=== PATIENT | female | born 1940 | race Two or more races ===

== ENCOUNTER 2017-12-29 23:06 | Inpatient (IN) | payer MEDICAID, MEDICARE ==
[~2017-12-29] VITALS: Ht 160 cm; Wt 68.0 kg
[2017-12-29] MEDS ORDERED: ONDANSETRON HCL/PF 4 MG/2 ML VIAL ONE (23:13)
[2017-12-29 23:58] LABS: HEMATOCRIT 37 % (33-45); HEMOGLOBIN 12.3 g/dL (11.5-14.8); LYMPHOCYTES # (AUTO) 0.6 /CMM (0.8-4.8); LYMPHOCYTES % (AUTO) 6.4 % (20.0-44.0); MEAN CORPUSCULAR HGB CONC 34 g/dl (31.0-36.0); MEAN CORPUSCULAR VOLUME 87 fL (82-100); MONOCYTES # (AUTO) 0.1 /CMM (0.1-1.30); MONOCYTES % (AUTO) 1.3 % (2.0-12.0); NEUTROPHILS % (AUTO) 92.3 % (43.0-81.0); PLATELET COUNT (AUTO) 198 /CMM (150-450); RDW COEFFICIENT OF VARIATION 13.9 (11.5-15.0); WHITE BLOOD COUNT (AUTO) 9.7 K/uL (4.3-11.0)
[2017-12-30] MEDS ORDERED: ONDANSETRON HCL/PF - ER 4 MG/2 ML VIAL IV ONE
--- NOTE | 2017-12-30 00:02 | NUR ---
PT LEFT FOR CT.
[2017-12-30 00:07] LABS: CALCIUM, SERUM 9.2 mg/dL (8.5-10.1); CARBON DIOXIDE 26 mmol/L (21-32); CHLORIDE 102 mmol/L (98-107); CREATININE 0.8 mg/dL (0.6-1.3); GLUCOSE 182 mg/dL (74-106); SODIUM SERUM 138 mmol/L (136-145); UREA NITROGEN, BLOOD 26 mg/dL (7-18)
[2017-12-30 00:14] LABS: INR 0.95 (0.87-1.13)
--- NOTE | 2017-12-30 00:20 | NUR ---
PT RETURNED FROM CT.
--- NOTE | 2017-12-30 00:47 | NUR ---
CALLED NURSING SUP. FOR TELE BED
[2017-12-30] MEDS ORDERED: MAGNESIUM HYDROXIDE 30 ML UDC PO PRN (01:00)
[2017-12-30] MEDS ORDERED: MAG HYDROX/AL HYDROX/SIMETH 30 ML UDC PO PRN (01:00)
[2017-12-30] MEDS ORDERED: ONDANSETRON HCL/PF 4 MG/2 ML VIAL IVP PRN (01:00)
[2017-12-30] MEDS ORDERED: IV NS 0.9% 500 ML BAG IV ONE (01:00)
[2017-12-30] MEDS ORDERED: HYDROCODONE/APAP 5/325MG 1 EACH TABLET PO PRN (01:00)
[2017-12-30] MEDS ORDERED: CLONIDINE HCL 0.1 MG TABLET PO PRN (01:00)
[2017-12-30] MEDS ORDERED: ZOLPIDEM TARTRATE 5 MG TABLET PO PRN (01:00)
[2017-12-30] MEDS ORDERED: ACETAMINOPHEN 325 MG TABLET PO PRN (01:00)
[2017-12-30] MEDS ORDERED: Z GUARD REMEDY 2 OZ OINT TP PRN (01:00)
--- NOTE | 2017-12-30 01:50 | NUR ---
REPORT GIVEN TO JAYNE CHADWICK.
[2017-12-30 02:00] VITALS: BP 150/90
--- NOTE | 2017-12-30 02:14 | NUR ---
PT TRANSPORTED TO TELE VIA [facility] PER PROTOCOL.
[2017-12-30] MEDS: METOPROLOL TARTRATE 25 MG TABLET PO SCH ×3 (02:59→16:27)
--- NOTE | 2017-12-30 03:00 | NUR ---
TELE SENIOR COPYWRITER INITIAL NOTES ADMIT PT FROM ER VIA [facility] ACCOMPANIED BY ER NURSE AND HER FAMILY. DX OF HYPERTENSIVE URGENCY. PT IS ALERT AND ORIENTED, CITIZ[place] OF [place] SPEAKING AMBULATE WITH SOME ASSISTANCE FOR PT SAFETY. DENIES ANY N/V AT THIS TIME. SHE ONLY STATED HER MOUTH SO DRY . CHECKED HER ORDERED AND SHE'S ON CARDIAC DIET. ICE CHIP GIVEN ABD JELO. NO N/V NOTED PT TOLERATED WELL. NO ASPIRATION TOO. TELE SR PER MONITOR. KEPT HER WARM AND COMFORTABLE AT ALL TIMES. PLACE CALL LIGHT AT REACH. WILL CONTINUE TO MONITOR.
[2017-12-30 03:07] VITALS: BP 150/90
[2017-12-30 04:00] VITALS: BP 135/80
--- NOTE | 2017-12-30 07:39 | NUR ---
TELE STEEL POST INSTALLER CLOSING NOTES PT BAKC TO SLEEP AFTER USING THE RESTROOM. DENIES ANY DIZZINESS AND N/V. SHE STATED GOOD. KEPT HER WARM AND COMFORTABLE AT ALL TIMES,. TELE SR PER MONITOR. ENDORSE TO AM NURSE FOR CONTINUITY OF CARE. PLACE CALL LIGHT AT REACH.
[2017-12-30 08:00] VITALS: BP 118/60
--- NOTE | 2017-12-30 08:49 | NUR ---
CHIEF DISPATCHER SERVICE NOTES PATIENT IN BED, A/O X4. RWANDAN SPEAKING, UNDERSTAND AND SPEAKS SOME HUNGARIAN. BREAKFAST SERVED, GOOD APPETITE. DENIES N/V, NO C/O PAIN. SINUS RHYTHM HR 70 ON THE MONITOR. IVC IN LEFT HAND G20 PATENT AND INTACT, FLUSHES WELL. SAFETY MEASURES IN PLACE. WILL CONT TO MONITOR.
[2017-12-30 16:00] VITALS: BP 125/57
--- NOTE | 2017-12-30 18:21 | NUR ---
BANK ACCOUNTANT CLOSING NOTES VS STABLE, SINUS RHYTHM, SINUS ERICA HR 56 IN THE MONITOR. TOLERATING ROOM AIR WITH NO SOB. DENIES DIZZINESS. IVC IN LEFT HAND G20 PATENT AND INTACT, FLUSHES WELL. SAFETY MEASURES IN PLACE. CALL LIGHT WITHIN REACH. WILL CONT TO MONITOR. WILL ENDORSE TO ONCOMING RN.
--- NOTE | 2017-12-30 18:27 | NUR ---
MS RN CLOSING NOTES VS STABLE, TOLERATING ROOM AIR WITH NO SOB. EPISODE OF DIARRHEA X1 TODAY, ABDOMINAL CRAMPS MANAGED BY DICYCLOMINE PO PRN, EFFECTIVE. IVC IN RFA G22 PATENT AND INTACT, FLUSHES. AFEBRILE DURING THE SHIFT. MAINTAINED CONTACT ISOLATION STOOL CDIFF. SAFETY MEASURES IN PLACE. CALL LIGHT WITHIN REACH. WILL CONT TO MONITOR. Addendum: 12/31/17 at 0810 by ANJALI GOINS RN LATE ENTRY 12/31/17 ERROR NOTES ABOVE, WRONG ENTRY, PLEASE DISREGARD.
--- NOTE | 2017-12-30 19:30 | NUR ---
RN OPENING NOTES PT AWAKE AND RESTING IN BED. PT PRIMARILY [place] SPEAKER. NO COMPLAINTS OF PAIN, DISTRESS OR SOB AT THIS TIME. PT IS TELE MONITORED SINUS ERICA 55. PT HAS A LEFT HAND #20 IV, INTACT AND PATENT. SAFETY PRECAUTIONS IN PLACE. BED IN LOWEST LOCKED POSITION, X2 SIDE RAILS UP, CALL LIGHT WITHIN REACH. WILL CONTINUE TO MONITOR.
[2017-12-30 20:00] VITALS: BP 141/59
[2017-12-31] VITALS: BP 156/81
[2017-12-31 04:00] VITALS: BP 135/82
[2017-12-31 06:53] LABS: BASOPHILS % (AUTO) 0.4 % (0.0-2.0); EOSINOPHILS % (AUTO) 0.9 % (0.0-6.0); HEMATOCRIT 37 % (33-45); HEMOGLOBIN 12.6 g/dL (11.5-14.8); LYMPHOCYTES # (AUTO) 2.4 /CMM (0.8-4.8); LYMPHOCYTES % (AUTO) 29.4 % (20.0-44.0); MEAN CORPUSCULAR HGB CONC 34 g/dl (31.0-36.0); MEAN CORPUSCULAR VOLUME 87 fL (82-100); MONOCYTES # (AUTO) 0.8 /CMM (0.1-1.30); NEUTROPHILS # (AUTO) 4.8 /CMM (1.8-8.9); NEUTROPHILS % (AUTO) 59.3 % (43.0-81.0); PLATELET COUNT (AUTO) 202 /CMM (150-450); RDW COEFFICIENT OF VARIATION 14.1 (11.5-15.0); RED BLOOD CELL COUNT(AUTO) 4.26 MIL/uL (4.0-5.2); WHITE BLOOD COUNT (AUTO) 8.2 K/uL (4.3-11.0)
--- NOTE | 2017-12-31 06:58 | NUR ---
RN CLOSING NOTES PT AWAKE AND RESTING IN BED. PT PRIMARILY ZAMBIAN SPEAKER. NO COMPLAINTS OF PAIN, DISTRESS OR SOB OVERNIGHT. PT IS TELE MONITORED SINUS 57. PT HAS A LEFT HAND #20 IV, INTACT AND PATENT. SAFETY PRECAUTIONS IN PLACE. BED IN LOWEST LOCKED POSITION, X2 SIDE RAILS UP, CALL LIGHT WITHIN REACH. WILL ENDORSE TO DAY SHIFT NURSE FOR CONTINUITY OF CARE.
[2017-12-31 07:10] LABS: CALCIUM, SERUM 8.7 mg/dL (8.5-10.1); CARBON DIOXIDE 28 mmol/L (21-32); CHLORIDE 106 mmol/L (98-107); CREATININE 0.9 mg/dL (0.6-1.3); GLUCOSE 95 mg/dL (74-106); MAGNESIUM 2.1 mg/dL (1.8-2.4); PHOSPHORUS 3.8 mg/dL (2.5-4.9); POTASSIUM 3.9 mmol/L (3.5-5.1); SODIUM SERUM 142 mmol/L (136-145); UREA NITROGEN, BLOOD 17 mg/dL (7-18)
[2017-12-31 07:24] LABS: CHOLESTEROL 220 mg/dL (<200); HDL CHOLESTEROL 62 mg/dL (40-60); LDL 143 mg/dL (0-99); THYROID STIMULATING HORMONE 2.447 uIU/mL (0.358-3.74); TRIGLYCERIDES 112 mg/dL (30-150)
[2017-12-31 08:00] VITALS: BP 114/75
[2017-12-31] MEDS: METOPROLOL TARTRATE 25 MG TABLET PO SCH ×2 (08:02→17:14)
--- NOTE | 2017-12-31 08:20 | NUR ---
PHARMACY RESIDENT NOTES A/O X4, SINUS RHYTHM, HR 89 IN THE MONITOR. TOLERATING ROOM AIR WITH NO SOB. DENIES DIZZINESS. IVC IN LEFT HAND G20 PATENT AND INTACT, FLUSHES WELL. SAFETY MEASURES IN PLACE. CALL LIGHT WITHIN REACH. WILL CONT TO MONITOR.
[2017-12-31] MEDS: ASPIRIN 81 MG TAB.CHEW PO SCH (09:51)
[2017-12-31] MEDS: PANTOPRAZOLE 40 MG TABLET.DR PO SCH (09:51)
[2017-12-31 16:00] VITALS: BP 119/70
--- NOTE | 2017-12-31 18:17 | NUR ---
MS RN CLOSING NOTES VS REMAINS STABLE. IVC IN LEFT HAND G20 PATENT AND INTACT, FLUSHES WELL. RAPID INFLUENZA ANTIGEN A+B RESULTED NEGATIVE. SEEN BY KARL RIOS TODAY SPOKE WITH SON. PATIENT DENIES DIZZINESS, AMBULATES TO THE BATHROOM WITH ASSIST. GOOD APPETITE. SAFETY MEASURES IN PLACE. CALL LIGHT WITHIN REACH. FOR PSYCH CONSULT AND PT EVAL ORDERED. WILL ENDORSE TO ONCOMING RN.
--- NOTE | 2017-12-31 19:30 | NUR ---
RN CLOSING NOTES PT SLEEPING IN BED. EASILY AWAKEN TO NAME. NO COMPLAINTS OF PAIN, SOB, DISTRESS OR DIZZINESS. PT PRIMARILY TEL[place] SPEAKER. PT HAS A LEFT HAND #20 IV INTACT AND PATENT. PT AMBULATES TO RESTROOM WITH MINIMAL ASSISTANCE. SAFETY PRECAUTIONS IN PLACE. BED IN LOWEST LOCKED POSITION, X2 SIDE RAILS UP. CALL LIGHT WITHIN REACH WILL CONTINUE TO MONITOR. Addendum: 01/01/18 at 0654 by MICHELLE DAN RN RN OPENING NOTES
[2017-12-31 20:00] VITALS: BP 138/72
--- NOTE | 2018-01-01 06:52 | NUR ---
RN CLOSING NOTES AWAKE AND RESTING IN BED. NO COMPLAINTS OF PAIN, SOB, DISTRESS OR DIZZINESS OVERNIGHT. PT PRIMARILY ESTONIAN SPEAKER. PT HAS A LEFT HAND #20 IV INTACT AND PATENT. PT AMBULATES TO RESTROOM WITH MINIMAL ASSISTANCE. SAFETY PRECAUTIONS IN PLACE. BED IN LOWEST LOCKED POSITION, X2 SIDE RAILS UP. CALL LIGHT WITHIN REACH. WILL ENDORSE TO DAY SHIFT NURSE FOR CONTINUITY OF CARE.
--- NOTE | 2018-01-01 08:00 | NUR ---
m/s cook mayonnaise: initial assessment received pt in bed awake, a/ox4; ambulatory; telugu speaking with little british virgin islander. pt wants to go home today. no c/o pain or any discomfort. awaiting for md evaluation. instructed to call for assistance. will continue to monitor.
[2018-01-01 08:44] VITALS: BP 131/54
[2018-01-01] MEDS: ASPIRIN 81 MG TAB.CHEW PO SCH (08:44)
[2018-01-01] MEDS: METOPROLOL TARTRATE 25 MG TABLET PO SCH ×2 (08:44→16:01)
[2018-01-01] MEDS: PANTOPRAZOLE 40 MG TABLET.DR PO SCH (08:44)
--- NOTE | 2018-01-01 10:00 | NUR ---
m/s visual effects artist: notes up and about in room. no distress noted. will continue to monitor.
--- NOTE | 2018-01-01 11:30 | NUR ---
m/s barrel charrer: md visit seen and examined by paty (acnp) at this time. for psych consult, awaiting for dr. mahan.
--- NOTE | 2018-01-01 14:00 | NUR ---
m/s foley artist: notes up and about in room. instructed to call for assistance. will continue to monitor.
--- NOTE | 2018-01-01 15:25 | NUR ---
M/S AD COPY WRITER[facility]URRELL WITH ORDER TO START HER LEXAPRO 5MG PO DAILY. ORDER READ BACK AND CARRIED OUT ACKNOWLEDGED. PER DR. BURRELL, PT IS OK TO GO HOME IN HIS PERSPECTIVE. LEFT MESSAGE TO KATHY (ACNP) AND MADE AWARE.
[2018-01-01] MEDS ORDERED: ESCITALOPRAM OXALATE (10 MG) 10 MG TABLET PO SCH (15:30)
[2018-01-01 15:49] VITALS: BP 132/69
[2018-01-01 16:01] VITALS: BP 132/69
[2018-01-01] MEDS ORDERED: ESCI10TA PO (16:58)
[2018-01-01] MEDS ORDERED: ASPI-1169 PO (16:58)
[2018-01-01] MEDS ORDERED: ATOR40TA PO (16:58)
[2018-01-01] MEDS ORDERED: METO25TA20 PO (16:58)
--- NOTE | 2018-01-01 17:03 | NUR ---
m/s refrigeration service inspector: notes son here and spoke to paty (acnp) and wants pt to go home with them today. discharge home order received from acnp with Discharge instructions to Discharge home with family, Contiue statin/ASA, Follow up with PCP. order acknowledge. awaiting for prescriptions and family aware.
--- NOTE | 2018-01-01 17:35 | NUR ---
m/s wardrobe mistress: d'c instructions discharged instructions with prescriptions given to son and also med teaching provided including side effects, son verbalized understanding. h/l removed with tip intact with no swelling, no redness, and no bleeding noted. pt wants to eat dinner and will call once ready.
--- NOTE | 2018-01-01 18:16 | NUR ---
m/s meat carver: discharged discharged home accompanied by son and dtr-in-law in stable condition with all d'c papers and belongings via private car.
--- NOTE | 2018-01-01 18:20 | NUR ---
m/s loki: rio escobedo (heather) called ambulation and eta at 1945. pt made aware. Addendum: 01/01/18 at 1826 by SENTHIL ARMENDARIZ LVN above charting error, wrong pt.
[2018-01-01] MEDS ORDERED: ATORVASTATIN 40 MG TABLET PO SCH (22:00)
== END 2018-01-01 18:15 | disposition home or self-care (01) | DRG 469 ==
LOC: ER 23:09 → TELE 12-30 01:28 → MED 12-31 10:33
PROVIDERS: ADMIT Internal Medicine; ATTEND Internal Medicine
DX: N17.0 Acute kidney failure with tubular necrosis (principal); F32.2 Major depressive disorder, single episode, severe without psychotic features; E86.0 Dehydration; E78.5 Hyperlipidemia, unspecified; I10 Essential (primary) hypertension; F41.9 Anxiety disorder, unspecified; Z87.891 Personal history of nicotine dependence; Z91.81 History of falling; R73.9 Hyperglycemia, unspecified; Z86.73 Personal history of transient ischemic attack (TIA), and cerebral infarction without residual deficits; R53.1 Weakness; J32.9 Chronic sinusitis, unspecified
CPT/HCPCS: 36415; 70450-TC; 71045-TC; 80048-TC; 80061-TC; 82306; 82728-TC; 82962-TC; 83540-TC; 83735-TC; 84100-TC; 84439-TC; 84443-TC; 84484-TC; 85025-TC; 85730-TC; 87081-TC; 87400; 93307-TC; A4606; J2405; J7040; Z7610